=== PATIENT | female | born 1980 | race American Indian/Alaskan Native ===

== ENCOUNTER 2017-12-28 07:22 | Emergency (ER) | payer SELFPAY ==
--- NOTE | 2017-12-28 09:19 | Emergency Department Report ---
ED Female HPI - General Chief complaint: Urogenital-Female Stated complaint: VAGINA IRRITATION Time Seen by Provider: 12/28/17 08:44 Source: patient Mode of arrival: Ambulatory Limitations: No Limitations - History of Present Illness Initial comments: This is a 37-year-old -[place] female presents with malodorous vaginal discharge and itching for 2 months on and off. Patient admits to new partner and aren't sure if she has an ear infection or not. Patient reports symptoms started shortly after having intercourse 2 months ago. She didn't start taking Azo and cranberry peels [id number] with no improvement of symptoms. Past medical history of hypertension. Patient does have a IUD with frequent bacterial vaginitis. Denies frequency, urgency, dysuria, abdominal pain, low back pain, and fever. MD Complaint: vaginal discharge Onset/Timin -: month(s) Location: labia Radiation: non-radiating Severity: mild (2) Severity scale (0 -10): 2 Quality: other (itching) Consistency: constant Improves with: none Worsens with: intercourse Are you Now?: No Last Menstrual Period: 12/23/17 EDC: 09/29/18 - Related Data Sexually active: Yes : 2 Para: 2 A: 0 Previous Rx's Medication Instructions Recorded Last Taken Type Clindamycin (Nf) [Clindamycin VAG 100 mg VG QHS #3 supp 12/28/17 Unknown Rx SUPPOS] Fluconazole [Diflucan] 150 mg PO ONCE #1 tablet 12/28/17 Unknown Rx Allergies Allergy/AdvReac Type Severity Reaction Status Date / Time morphine Allergy Itching Verified 12/28/17 07:45 ED Review of Systems ROS: Stated complaint: VAGINA IRRITATION Other details as noted in HPI Constitutional: denies: chills, fever Respiratory: denies: cough, shortness of breath, wheezing Cardiovascular: denies: chest pain, palpitations Gastrointestinal: denies: abdominal pain, nausea, vomiting, diarrhea Genitourinary: discharge (malodorous white discharge). denies: urgency, dysuria , frequency, hematuria Musculoskeletal: denies: back pain, joint swelling, arthralgia Neurological: denies: headache, weakness, paresthesias Psychiatric: denies: anxiety, depression ED Past Medical Hx - Past Medical History Previous Medical History?: Yes Hx Hypertension: Yes - Surgical History Past Surgical History?: Yes Hx Cholecystectomy: Yes Additional Surgical History: gastric bypass - Social History Smoking Status: Never Smoker Substance Use Type: Alcohol - Medications Home Medications: Home Medications Medication Instructions Recorded Confirmed Last Taken Type Clindamycin (Nf) [Clindamycin VAG 100 mg VG QHS #3 supp 12/28/17 Unknown Rx SUPPOS] Fluconazole [Diflucan] 150 mg PO ONCE #1 tablet 12/28/17 Unknown Rx ED Physical Exam - General Limitations: No Limitations General appearance: alert, in no apparent distress - Respiratory Respiratory exam: Present: normal lung sounds bilaterally. Absent: respiratory distress - Cardiovascular Cardiovascular Exam: Present: regular rate, normal rhythm. Absent: systolic murmur, diastolic murmur, rubs, gallop - GI/Abdominal GI/Abdominal exam: Present: soft, normal bowel sounds. Absent: distended, tenderness, guarding, rebound, rigid, organomegaly, mass - External exam: Present: normal external exam Speculum exam: Present: vaginal discharge (malodorous thin white discharge). Absent: erythema, cervical discharge, vaginal bleeding, foreign body, tissue, laceration - Neurological Exam Neurological exam: Present: alert, oriented X3 - Psychiatric Psychiatric exam: Present: normal affect, normal mood - Skin Skin exam: Present: warm, dry, intact, normal color. Absent: rash ED Course Vital Signs 12/28/17 07:45 Temperature 98.1 F Pulse Rate 90 Respiratory 18 Rate Blood Pressure 151/94 O2 Sat by Pulse 98 Oximetry ED Medical Decision Making - Medical Decision Making This is a 37-year-old -[place] female who presents with malodorous discharge for 2 months. Patient was examined by me. Vitals are stable and in no acute distress. Obtain urinalysis, GC, and wet prep via pelvic exam. Urinalysis normal, wet prep positive clue cells, negative yeast and Trichomonas. Start clindamycin 100 mg ovule into the vagina once daily at night for 3 days. Patient request medication for post antibiotic yeast infection therapy. Start diflucan 150 mg 1 tab by mouth once after completion of antibiotics. Discharged home in stable condition. Discussed prevention options. F/U with PCP or [facility] if symptoms persist. Critical care attestation.: If time is entered above; I have spent that time in minutes in the direct care of this critically ill patient, excluding procedure time. ED Disposition Clinical Impression: Bacterial vaginitis, Vaginal discharge Disposition: TO HOME OR SELFCARE Is pt being admited?: No Does the pt Need Aspirin: No Condition: Stable Instructions: Bacterial Vaginosis (ED) Additional Instructions: Avoid drinking alcohol while taking antibiotics and for 24 hours after completion. Continue safe sexual intercourse. Follow up with Primary Care Provider or STRE[facility] in 3-5 days if symptoms persist after completion of antibiotics. Prescriptions: Clindamycin (Nf) [Clindamycin VAG SUPPOS] 100 mg VG QHS #3 supp Fluconazole [Diflucan] 150 mg PO ONCE #1 tablet Referrals: [facility] [Outside] - 3-[address] [facility] [Provider Group] - 3-5 Days [facility] [Provider Group] - 3-5 Days Forms: STI Treatment and Prevention Time of Disposition: 10:21 Print Language: EQUATORIAL GUINEAN
[2017-12-28 10:07] LABS: Bilirubin,Urine NEG (Negative); Blood,Urine NEG (Negative); Color,Urine Straw (Yellow); Mucus,Urine FEW /HPF; Protein,Urine <15 mg/dL mg/dL (Negative); Urobilinogen,Urine < 2.0 mg/dL (<2.0); WBC,Urine < 1.0 /HPF (0.0-6.0)
[2017-12-28 11:45] VITALS: BP 126/72
== END 2017-12-28 11:43 | disposition home or self-care (01) ==
LOC: ED 07:22
DX: N76.0 Acute vaginitis (principal); I10 Essential (primary) hypertension; Z90.49 Acquired absence of other specified parts of digestive tract; Z88.4 Allergy status to anesthetic agent
CPT/HCPCS: 81001; 87210; 87591

== ENCOUNTER 2018-07-24 03:38 | Emergency (ER) | payer OTHER ==
[2018-07-24] MEDS ORDERED: PEPCID PO ONE (04:22)
[2018-07-24] MEDS ORDERED: ATARAX PO ONE (04:22)
--- NOTE | 2018-07-24 04:22 | Emergency Department Report ---
ED General Adult HPI - General Chief complaint: Allergic Reaction Stated complaint: ALLERGIC REACTION Time Seen by Provider: 07/24/18 04:15 Source: patient, RN notes reviewed, old records reviewed Mode of arrival: Ambulatory Limitations: No Limitations - History of Present Illness Initial comments: This is a 37-year-old female. Patient reports that she is not , and has a history of obesity, and gastric bypass. Patient reports that she was eating shrimp yesterday, and at around 1 to 2:00 this morning, developed a sensation of throat tightness, and migratory resolving pruritic rash on her upper and lower extremities. These symptoms are intermittent, painless, did not radiate anywhere, and did not appear to have exacerbating or relieving factors, with the exception of [id number] Benadryl, which has mostly resolved the patient's symptoms. Currently, she is somewhat itchy, and somewhat anxious, but does not have any discrete new or different rashes. She is speaking in full sentences. She denies headache, neck pain, chest pain, abdominal pain, shortness of breath. -: Sudden Location: buttocks, left, right, upper extremity, lower extremity Quality: other Consistency: intermittent Improves with: medication Associated Symptoms: rash, other (anxiety, throat pressure). denies: confusion, chest pain, cough, diaphoresis, fever/chills, headaches, loss of appetite, malaise, nausea/vomiting, seizure, shortness of breath, syncope, weakness - Related Data Previous Rx's Medication Instructions Recorded Last Taken Type Clindamycin (Nf) [Clindamycin VAG 100 mg VG QHS #3 supp 12/28/17 Unknown Rx SUPPOS] Fluconazole [Diflucan] 150 mg PO ONCE #1 tablet 12/28/17 Unknown Rx Triamcinolone 0.025% (Nf) [Kenalog 1 applic TP TID #1 tube 07/14/18 Unknown Rx 0.025% OINT] amLODIPine [Norvasc] 5 mg PO DAILY #30 tab 07/14/18 Unknown Rx hydroCHLOROthiazide 12.5 mg PO QDAY #30 tablet 07/14/18 Unknown Rx [Hydrochlorothiazide] EPINEPHrine [Epipen 2-Sunday] 0.3 mg IM DAILY PRN #2 ml 07/24/18 Unknown Rx Famotidine [Pepcid] 20 mg PO BID #10 tablet 07/24/18 Unknown Rx Allergies Allergy/AdvReac Type Severity Reaction Status Date / Time morphine Allergy Itching Verified 12/28/17 07:45 ED Review of Systems ROS: Stated complaint: ALLERGIC REACTION Other details as noted in HPI Constitutional: denies: fever Eyes: denies: vision change ENT: other (see history of present). denies: ear pain, hearing loss, epistaxis, congestion Respiratory: denies: cough Cardiovascular: denies: chest pain Gastrointestinal: denies: abdominal pain Musculoskeletal: denies: arthralgia Skin: rash, lesions Psychiatric: anxiety ED Past Medical Hx - Past Medical History Previous Medical History?: Yes Hx Hypertension: Yes - Surgical History Past Surgical History?: Yes Hx Cholecystectomy: Yes Additional Surgical History: gastric bypass - Social History Smoking Status: Never Smoker Substance Use Type: Alcohol - Medications Home Medications: Home Medications Medication Instructions Recorded Confirmed Last Taken Type Clindamycin (Nf) [Clindamycin VAG 100 mg VG QHS #3 supp 12/28/17 Unknown Rx SUPPOS] Fluconazole [Diflucan] 150 mg PO ONCE #1 tablet 12/28/17 Unknown Rx Triamcinolone 0.025% (Nf) [Kenalog 1 applic TP TID #1 tube 07/14/18 Unknown Rx 0.025% OINT] amLODIPine [Norvasc] 5 mg PO DAILY #30 tab 07/14/18 Unknown Rx hydroCHLOROthiazide 12.5 mg PO QDAY #30 tablet 07/14/18 Unknown Rx [Hydrochlorothiazide] EPINEPHrine [Epipen 2-Sunday] 0.3 mg IM DAILY PRN #2 ml 07/24/18 Unknown Rx Famotidine [Pepcid] 20 mg PO BID #10 tablet 07/24/18 Unknown Rx ED Physical Exam - General Limitations: No Limitations General appearance: alert, anxious, obese - Head Head exam: Present: atraumatic, normocephalic - Eye Eye exam: Present: normal appearance, EOMI. Absent: nystagmus - ENT ENT exam: Present: normal exam, normal orophraynx, mucous membranes moist, normal external ear exam, other (there is no stridor. The tongue is midline. The uvula is midline. The patient is speaking in full sentences. There is no hoarse voice. There is no hot potato voice.) - Neck Neck exam: Present: normal inspection, full ROM. Absent: tenderness, meningismus - Respiratory Respiratory exam: Present: normal lung sounds bilaterally. Absent: respiratory distress - Cardiovascular Cardiovascular Exam: Present: regular rate, normal rhythm, normal heart sounds. Absent: bradycardia, tachycardia, irregular rhythm, systolic murmur, diastolic murmur, rubs, gallop - GI/Abdominal GI/Abdominal exam: Present: soft. Absent: distended, tenderness, guarding, rigid, pulsatile mass - Extremities Exam Extremities exam: Present: normal inspection, full ROM, other (2+ pulses noted in the bilateral upper, lower extremities. Compartments soft. No long bony tenderness. The pelvis is stable.). Absent: calf tenderness - Back Exam Back exam: Present: normal inspection, full ROM. Absent: tenderness, CVA tenderness (R), paraspinal tenderness, vertebral tenderness - Neurological Exam Neurological exam: Present: alert, oriented X3, CN II-XII intact, normal gait, other (Extraocular movements intact. Tongue midline. No facial droop. Facial sensation intact to light touch in the V1, V2, V3 distribution bilaterally. 5 and 5 strength in 4 extremities.. Sensation is intact to light touch in 4 extremities.). Absent: motor sensory deficit - Psychiatric Psychiatric exam: Present: anxious - Skin Skin exam: Present: warm, erythema, other (blanching macular erythema noted on the right posterior arm, nontender.) ED Course Vital Signs 07/24/18 07/24/18 04:02 04:20 Temperature 98.8 F 98.5 F Pulse Rate 108 H 87 Respiratory 16 16 Rate Blood Pressure 132/92 Blood Pressure 140/81 [Left] O2 Sat by Pulse 99 99 Oximetry - Reevaluation(s) Reevaluation #1: 07/24/18 04:45 Differential diagnosis, including not limited to: Allergy, urticaria, Assessment and plan: 37-year-old female with resolved tachycardia, with rash which appears to be mostly resolved. May have a component of very minimal allergic reaction at this point in time. The patient is speaking in full sentences, with no stridor or dysphonia. The patient is counseled to discontinue shrimp consumption. Based off of her benign appearance and presentation, it is my pain that she does not require steroids. She may follow up with an outpatient managed care specialist or hone operator. ED Medical Decision Making - Lab Data Vital Signs 07/24/18 07/24/18 04:02 04:20 Temperature 98.8 F 98.5 F Pulse Rate 108 H 87 Respiratory 16 16 Rate Blood Pressure 132/92 Blood Pressure 140/81 [Left] O2 Sat by Pulse 99 99 Oximetry Critical care attestation.: If time is entered above; I have spent that time in minutes in the direct care of this critically ill patient, excluding procedure time. ED Disposition Clinical Impression: History of allergy Disposition: DC-01 TO HOME OR SELFCARE Is pt being admited?: No Does the pt Need Aspirin: No Condition: Good Instructions: Food Allergy (ED), Anaphylaxis (ED) Additional Instructions: Discontinue consumption of shrimp. Take the medications as needed/directed. Follow up with a hone operator or managed care specialist within the next 3-4 weeks. Use the epinephrine pen only if patient develops inability to speak, inability to breathe. Return to the ER right away with new, worsening or different symptoms. Dr Cohen is a local transit specialist. Referrals: RAVEN COHEN MD [Staff Physician] - as needed Forms: Work/School Release Form(ED)
[2018-07-24 05:20] VITALS: BP 126/78
== END 2018-07-24 05:43 | disposition home or self-care (01) ==
LOC: ED 03:38
DX: R21 Rash and other nonspecific skin eruption (principal); I10 Essential (primary) hypertension
CPT/HCPCS: 99282

== ENCOUNTER 2021-06-25 09:24 | Emergency (ER) | payer OTHER ==
[2021-06-25 09:57] VITALS: BP 117/73
--- NOTE | 2021-06-25 12:47 | Emergency Department Report ---
ED General Adult HPI - General Chief complaint: Headache Stated complaint: ACCIDENT, DIZZY Time Seen by Provider: 06/25/21 12:41 Source: patient Mode of arrival: Ambulatory Limitations: No Limitations - History of Present Illness Initial comments: Patient is a 40-year-old female presents emergency room with complaints of a slip and fall that occurred on 06/23/2021. Patient reports that she hit the ground on her right side. She is complaining of headache, right shoulder pain, right-sided neck pain. She denies any loss of consciousness, vomiting, vision changes, numbness, weakness, bowel or bladder incontinence, speech disturbance, gait disturbance, any other injury. She reports that whenever she turns her head she feels a dizziness sensation but only with head movements. Past medical history of hypertension. Allergy to morphine. She reports that she is currently on her menstrual cycle. - Related Data Previous Rx's Medication Instructions Recorded Last Taken Type Clindamycin (Nf) [Clindamycin VAG 100 mg VG QHS #3 supp 12/28/17 Unknown Rx SUPPOS] Fluconazole [Diflucan] 150 mg PO ONCE #1 tablet 12/28/17 Unknown Rx Triamcinolone 0.025% (Nf) [Kenalog 1 applic TP TID #1 tube 07/14/18 Unknown Rx 0.025% OINT] amLODIPine 5 mg PO DAILY #30 tab 07/14/18 Unknown Rx hydroCHLOROthiazide 12.5 mg PO QDAY #30 tablet 07/14/18 Unknown Rx [Hydrochlorothiazide] EPINEPHrine [Epipen 2-Sunday] 0.3 mg IM DAILY PRN #2 ml 07/24/18 Unknown Rx Famotidine [Pepcid] 20 mg PO BID #10 tablet 07/24/18 Unknown Rx Butalb/Acetaminophen/Caffeine 1 cap PO Q8HR PRN #12 cap 06/25/21 Unknown Rx [Fioricet 50-300-40 mg CAP] Meclizine [Antivert] 25 mg PO TID PRN #30 tablet 06/25/21 Unknown Rx methOCARBAMOL [Robaxin TAB] 500 mg PO BID PRN #14 tab 06/25/21 Unknown Rx Allergies Allergy/AdvReac Type Severity Reaction Status Date / Time morphine Allergy Itching Verified 12/28/17 07:45 ED Review of Systems ROS: Stated complaint: ACCIDENT, DIZZY Other details as noted in HPI Comment: All other systems reviewed and negative ED Past Medical Hx - Past Medical History Hx Hypertension: Yes - Surgical History Hx Cholecystectomy: Yes Additional Surgical History: gastric bypass - Social History Smoking Status: Never Smoker Substance Use Type: Alcohol - Medications Home Medications: Home Medications Medication Instructions Recorded Confirmed Last Taken Type Clindamycin (Nf) [Clindamycin VAG 100 mg VG QHS #3 supp 12/28/17 Unknown Rx SUPPOS] Fluconazole [Diflucan] 150 mg PO ONCE #1 tablet 12/28/17 Unknown Rx Triamcinolone 0.025% (Nf) [Kenalog 1 applic TP TID #1 tube 07/14/18 Unknown Rx 0.025% OINT] amLODIPine 5 mg PO DAILY #30 tab 07/14/18 Unknown Rx hydroCHLOROthiazide 12.5 mg PO QDAY #30 tablet 07/14/18 Unknown Rx [Hydrochlorothiazide] EPINEPHrine [Epipen 2-Sunday] 0.3 mg IM DAILY PRN #2 ml 07/24/18 Unknown Rx Famotidine [Pepcid] 20 mg PO BID #10 tablet 07/24/18 Unknown Rx Butalb/Acetaminophen/Caffeine 1 cap PO Q8HR PRN #12 cap 06/25/21 Unknown Rx [Fioricet 50-300-40 mg CAP] Meclizine [Antivert] 25 mg PO TID PRN #30 tablet 06/25/21 Unknown Rx methOCARBAMOL [Robaxin TAB] 500 mg PO BID PRN #14 tab 06/25/21 Unknown Rx ED Physical Exam - General Limitations: No Limitations General appearance: alert, in no apparent distress - Head Head exam: Present: atraumatic, normocephalic - Eye Eye exam: Present: normal appearance, PERRL, EOMI, other (no racoon eyes). Absent: periorbital swelling, periorbital tenderness - ENT ENT exam: Present: mucous membranes moist, TM's normal bilaterally, normal external ear exam, other (no hernandez signs, no hemotypanum) - Neck Neck exam: Present: normal inspection, full ROM, other (no step offs, no deformities, no edema, no ecchymosis). Absent: tenderness, meningismus - Respiratory Respiratory exam: Present: normal lung sounds bilaterally. Absent: respiratory distress, wheezes, rales, rhonchi, stridor, chest wall tenderness, accessory muscle use, decreased breath sounds, prolonged expiratory - Cardiovascular Cardiovascular Exam: Present: regular rate, normal rhythm, normal heart sounds. Absent: systolic murmur, diastolic murmur, rubs, gallop - Extremities Exam Extremities exam: Present: other (no bony ttp of the BUE, FROM of the BUE, no deformity, no sulcus sign, clavicles are equal, no clavicular ttp, neurovascularly intact) - Back Exam Back exam: Present: normal inspection, full ROM. Absent: paraspinal tenderness, vertebral tenderness - Neurological Exam Neurological exam: Present: alert, oriented X3, CN II-XII intact, normal gait. Absent: motor sensory deficit - Expanded Neurological Exam Expanded Patient oriented to: Present: person, place, time Speech: Present: fluid speech Cranial nerves: EOM's Intact: Normal, Facial Sensation: Normal Cerebellar function: Finger to Nose: Normal, Heel to Justice: Normal Upper motor neuron: Pronator Drift: Normal Motor strength exam: RUE: 5, LUE: 5, RLE: 5, LLE: 5 Best Eye Response (Santana): (4) open spontaneously Best Motor Response (Santana): (6) obeys commands Best Verbal Response (Santana): (5) oriented Santana Total: 15 - Psychiatric Psychiatric exam: Present: normal affect, normal mood - Skin Skin exam: Present: warm, dry, intact ED Course Vital Signs 06/25/21 09:56 Temperature 98.4 F Pulse Rate 98 H Respiratory 15 Rate Blood Pressure 117/73 O2 Sat by Pulse 99 Oximetry ED Medical Decision Making - Medical Decision Making Patient is a 40-year-old female presents emergency room with complaints of a slip and fall that occurred on 06/23/2021. Patient reports that she hit the ground on her right side. She is complaining of headache, right shoulder pain, right-sided neck pain. She denies any loss of consciousness, vomiting, vision changes, numbness, weakness, bowel or bladder incontinence, speech disturbance, gait disturbance, any other injury. She reports that whenever she turns her head she feels a dizziness sensation but only with head movements. Past medical history of hypertension. Allergy to morphine. She reports that she is currently on her menstrual cycle. Vitals are normal. On exam: No skull or facial bony tenderness palpation, no periorbital edema or ecchymosis, no raccoon eyes, no hernandez signs, no hemotympanum, no midline or paraspinal C-spine, T- spine, L-spine tenderness palpation, no step-offs, no deformities, no focal neuro deficits,no bony ttp of the BUE, FROM of the BUE, no deformity, no sulcus sign, clavicles are equal, no clavicular ttp, neurovascularly intact, ambulatory without difficulty. No clinical signs of acute emergent traumatic injury at this time. [place] CT head rule is 0, CT head imaging is not recommended. NEXUS criteria is negative, C-spine can be cleared clinically. Patient will be given prescription for medication for advised patient to please take medication as prescribed. Follow-up with your primary care doctor. Follow-up with a neurologist. Return to emergency room for any new or worsening symptoms. Critical care attestation.: If time is entered above; I have spent that time in minutes in the direct care of this critically ill patient, excluding procedure time. ED Disposition Clinical Impression: Neck pain Minor head injury without loss of consciousness Qualifiers: Encounter type: initial encounter Qualified Code(s): S09.90XA - Unspecified injury of head, initial encounter Right shoulder pain Qualifiers: Chronicity: acute Qualified Code(s): M25.511 - Pain in right shoulder Disposition: 01 HOME / SELF CARE / HOMELESS Is pt being admited?: No Does the pt Need Aspirin: No Condition: Stable Instructions: Head Injury, Adult, [id number], Musculoskeletal Pain Additional Instructions: please take medication as prescribed. Follow-up with your primary care doctor. Follow-up with a neurologist. Return to emergency room for any new or worsening symptoms. Prescriptions: Meclizine [Antivert] 25 mg PO TID PRN #30 tablet PRN Reason: Vertigo Butalb/Acetaminophen/Caffeine [Fioricet 50-300-40 mg CAP] 1 cap PO Q8HR PRN #12 cap PRN Reason: headache methOCARBAMOL [Robaxin TAB] 500 mg PO BID PRN #14 tab PRN Reason: muscle spasm/pain Referrals: CHRISTINA VELEZ MD [Primary Care Provider] - 3-5 Days BREONNA COLEY MD [Referring] - 3-5 Days MU MICHAEL MD [Staff Physician] - 3-5 Days Time of Disposition: 12:50 Print Language: BAHAMIAN
== END 2021-06-25 13:03 | disposition home or self-care (01) ==
LOC: ED 09:24
DX: S09.90XA Unspecified injury of head, initial encounter (principal); M25.511 Pain in right shoulder; M54.2 Cervicalgia; I10 Essential (primary) hypertension; Z90.49 Acquired absence of other specified parts of digestive tract; Z98.890 Other specified postprocedural states; Z72.89 Other problems related to lifestyle; Z88.5 Allergy status to narcotic agent; Z79.899 Other long term (current) drug therapy; W18.39XA Other fall on same level, initial encounter; Y93.89 Activity, other specified; Y92.89 Other specified places as the place of occurrence of the external cause; Y99.8 Other external cause status
CPT/HCPCS: 99282